=== PATIENT | male | born 2000 | race Caucasian/White ===

== ENCOUNTER 2021-06-29 13:45 | Emergency (ER) | payer OTHER ==
[~2021-06-29] VITALS: Ht 182.9 cm; Wt 72.6 kg
[~2021-06-29 13:45] MED LIST: ANXIETY MED; Bactrim Ds Tab1 EACH PO; CEPH500 PO; Clindamycin HC300 MG PO; DEPRESSION MED; Desyrel50 MG; IBUP400; IBUP600 PO; Keflex500 MG PO; SULTRIDS PO; Ultram50 MG PO; Zofran Odt4 MG SL
[2021-06-29] MEDS ORDERED: ACYC400 PO (16:17)
[2021-06-29 16:26] LABS: Source, Urine Clean Catch
[2021-06-29 16:40] LABS: Appearance, Urine Cloudy (Clear); Bilirubin, Urine Neg (Neg); Blood, Urine Neg (Neg); Color, Urine Yellow (P-Yellow); Glucose Qualitative, Urine Neg (Neg); Ketones, Urine Neg (Neg); Leukocyte Esterase, Urine 1+ (Neg); Nitrite, Urine Neg (Neg); Protein, Urine 1+ (Neg); Urobilinogen, Urine NORM (Normal)
[2021-06-29] MEDS ORDERED: DOXY100 PO (16:58)
[2021-06-29 17:21] LABS: Amorphous Heavy (0-Heavy); Bacteria Few /hpf; Squamous Epithelial Cells Few /hpf (Few)
[2021-06-30 09:11] LABS: HIV SCREEN 4TH GENERATION WRFX Non Reactive (Non Reactive)
[2021-07-01 05:10] LABS: CHLAMYDIA TRACHOMATIS, NAA Negative (Negative)
== END 2021-06-29 17:35 | disposition home or self-care (01) ==
LOC: ER 13:45
PROVIDERS: Physician Assistant
DX: B00.9 Herpesviral infection, unspecified (principal); A74.9 Chlamydial infection, unspecified; A54.9 Gonococcal infection, unspecified; Z88.0 Allergy status to penicillin; Z88.5 Allergy status to narcotic agent; Z87.891 Personal history of nicotine dependence
CPT/HCPCS: 36415; 81001; 86592; 87086; 87389; 87491; 87591; 96372; 99283-25; A9270; J0696

== ENCOUNTER 2025-03-14 15:48 | Emergency (ER) | payer OTHER ==
[~2025-03-14] VITALS: Ht 182.9 cm; Wt 72.6 kg
[~2025-03-14 15:48] MED LIST changes: +ACYC400 PO; +DOXY100 PO
[2025-03-14 15:56] VITALS: BP 145/77
== END 2025-03-14 17:32 | disposition home or self-care (01) ==
LOC: ER 15:48
DX: S62.001A Unspecified fracture of navicular [scaphoid] bone of right wrist, initial encounter for closed fracture (principal); S63.114A Dislocation of metacarpophalangeal joint of right thumb, initial encounter; Z88.0 Allergy status to penicillin; Z88.5 Allergy status to narcotic agent; Z87.891 Personal history of nicotine dependence; W22.8XXA Striking against or struck by other objects, initial encounter
CPT/HCPCS: 29130; 73140; 99283-25

== ENCOUNTER 2025-06-19 16:06 | Emergency (ER) | payer OTHER ==
[~2025-06-19] VITALS: Ht 180.3 cm; Wt 65.8 kg
[2025-06-19 16:32] VITALS: BP 148/78
== END 2025-06-19 16:43 | disposition home or self-care (01) ==
LOC: ER 16:06
DX: M20.001 Unspecified deformity of right finger(s) (principal); M79.644 Pain in right finger(s); Z88.0 Allergy status to penicillin; Z88.5 Allergy status to narcotic agent; Z87.891 Personal history of nicotine dependence; Z59.89 Other problems related to housing and economic circumstances
CPT/HCPCS: 99283